=== PATIENT | male | born 1935 | race Caucasian/White ===

== ENCOUNTER 2016-07-01 23:55 | Inpatient (IN) | payer OTHER, MEDICARE ==
[2016-07-02 01:14] LABS: % IMMATURE GRANULYOCYTES 0.5 % (0.0-1.1); ABSOLUTE IMMATURE GRANULOCYTES 0.05 10^3/uL (0.00-0.10); ADD DIFF? NO; ADD MORPH? NO; ADD SCAN? NO; ATYPICAL LYMPHOCYTE FLAG 0 (0-99); FRAGMENT RBC FLAG 0 (0-99); HEMATOCRIT 42.3 % (40.0-51.0); HEMOGLOBIN 15.1 g/dL (13.7-17.5); LEFT SHIFT FLG 0 (0-99); LIPEMIA HEMOLYSIS FLAG 90 (0-99); MEAN CELL HEMOGLOBIN 34.8 pg (27.9-34.1); MEAN CELL HEMOGLOBIN CONCENTR. 35.7 g/dL (32.4-36.7); MEAN CELL VOLUME 97.5 fL (81.5-99.8); PLATELET CLUMPS FLAG 10 (0-99); PLATELET COUNT 113 10^3/uL (150-400); RED BLOOD CELL COUNT 4.34 10^6/uL (4.40-6.38); RED CELL DISTRIBUTION WIDTH 11.9 % (11.5-15.2)
[2016-07-02 01:25] LABS: ALANINE AMINOTRANSFERASE 39 IU/L (21-72); ALBUMIN 2.5 g/dL (3.5-5.0); ALKALINE PHOSPHATASE 61 IU/L (38-126); ANION GAP 5 mEq/L (8-16); ASPARTATE AMINOTRANSFERASE 38 IU/L (17-59); BILIRUBIN,TOTAL 0.6 mg/dL (0.1-1.4); CALCIUM 8.4 mg/dL (8.5-10.4); CARBON DIOXIDE 24 mEq/l (22-31); CHLORIDE 104 mEq/L (97-110); CREATININE 0.7 mg/dL (0.7-1.3); GLOMERULAR FILTRATION RATE > 60; GLUCOSE 111 mg/dL (70-100); SODIUM 133 mEq/L (134-144); TOTAL PROTEIN 4.6 g/dL (6.3-8.2)
[2016-07-02] MEDS ORDERED: NS 1,000 ML IV ONE (01:37)
[2016-07-02] MEDS ORDERED: AZITHROMYCIN 250 MG TAB PO ONE (01:38)
[2016-07-02] MEDS ORDERED: OSELTAMIVIR PHOSPHATE 75 MG CAP PO ONE (01:44)
--- NOTE | 2016-07-02 01:50 | EDPHY ---
H & P Stated Complaint: cough, fever x 3-4 days Time Seen by Provider: 07/02/16 00:35 HPI/ROS: HPI The patient presents with several days of cough which is productive sounding though he is not making any phlegm, also mild rhinorrhea. The cough has been constant and moderate in severity. Tonight it was associated with a fever to 102.7 and that is what prompted him to come to the emergency room. He says in general he is feeling lethargic and somewhat unsteady when he walks. He says he also has muscle aches. He just returned from a trip to [place]. His symptoms began while he was in [place]. He did receive a flu shot this year. 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 REVIEW OF SYSTEMS Constitutional: No fever, no chills. Eyes: No discharge. ENT: + sore throat. Cardiovascular: No chest pain, no palpitations. Respiratory: + cough, no shortness of breath. Gastrointestinal: No abdominal pain, no vomiting. Genitourinary: No hematuria. Musculoskeletal: No back pain. Skin: No rashes. Neurological: No headache. PMHx: Amyloidosis, history of DVT on Eliquis Soc Hx: Recent visit to [place] PHYSICAL General Appearance: Alert, no distress Eyes: Pupils equal and round no pallor or injection ENT, Mouth: Mucous membranes moist Respiratory: There are no retractions, lungs are clear to auscultation with faint crackles at the bases Cardiovascular: Regular rate and rhythm Gastrointestinal: Abdomen is soft and non-tender, no masses, bowel sounds normal Neurological: A&O, moves all extremities Skin: Warm and dry, no rashes Musculoskeletal: Neck is supple non tender Extremities: symmetrical, full range of motion Psychiatric: Patient is oriented X 3, there is no agitation Source: Patient Exam Limitations: No limitations - Personal History Current Tetanus/Diphtheria Vaccine: No Current Tetanus Diphtheria and Acellular Pertussis (TDAP): No Tetanus Vaccine Date: 2004 - Medical/Surgical History Hx Asthma: No Hx Chronic Respiratory Disease: No Hx Diabetes: No Hx Cardiac Disease: No Hx Renal Disease: No Hx Cirrhosis: No Hx Alcoholism: No Hx HIV/AIDS: No Hx Splenectomy or Spleen Trauma: No Other PMH: prostate CA, bilat inguinal hernia repair, amyloidosis in remission/ dvt - Social History Smoking Status: Never smoked Constitutional: Initial Vital Signs Temperature (C) 37.3 C 07/02/16 00:03 Heart Rate 99 07/02/16 00:03 Respiratory Rate 16 07/02/16 00:03 Blood Pressure 116/64 07/02/16 00:03 O2 Sat (%) 90 L 07/02/16 00:03 O2 Delivery Mode Room Air O2 (L/minute) 2 Allergies/Adverse Reactions: No Known Allergies Allergy (Verified 07/02/16 00:01) Home Medications: Medication Instructions Recorded Losartan Potassium [Cozaar 25 mg 11/17/13 (*)] Valacyclovir HCl [Valtrex] 11/17/13 Dexamethasone 07/02/16 Minlaro 07/02/16 Xarelto 07/02/16 Medical Decision Making - Diagnostics Imaging: Chest x-ray two views shows scarring verses fluid in the left lung fissure, interpreted by me, radiology interpretation is pending. ED Course/Re-evaluation: In the emergency room, basic labs were obtained and were unremarkable except for positive rapid flu testing. Chest x-ray shows possible mild pneumonia. He was given Tamiflu, ceftriaxone, azithromycin as well as a fluid bolus. He will be admitted to the hospitalist service and I have consulted with Dr. Brooks. Differential Diagnosis: This is a 80-year-old man with amyloidosis on chemotherapy, last treatment 1 week ago, also history of DVT on Eliquis who presents with fever tonight to 102.7 associated with cough, generalized malaise and unsteadiness on his feet. Differential diagnosis includes influenza, pneumonia, viral URI, less likely ACS given no chest pain. Less likely PE given he is currently anticoagulated on Eliquis in his symptoms preceded his flight from [place], however this is a consideration. - Data Points Laboratory Results: Laboratory Results 07/02/16 01:03 07/02/16 01:03 07/02/16 07/02/16 01:24 01:03 WBC 9.39 10^3/uL (3.80-9.50) RBC 4.34 L 10^6/uL (4.40-6.38) Hgb 15.1 g/dL (13.7-17.5) Hct 42.3 % (40.0-51.0) MCV 97.5 fL (81.5-99.8) MCH 34.8 H pg (27.9-34.1) MCHC 35.7 g/dL (32.4-36.7) RDW 11.9 % (11.5-15.2) Plt Count 113 L 10^3/uL (150-400) MPV 11.0 fL (8.7-11.7) Neut % (Auto) 83.5 H % (39.3-74.2) Lymph % (Auto) 4.0 L % (15.0-45.0) [place] % (Auto) 11.8 % (4.5-13.0) Eos % (Auto) 0.0 L % (0.6-7.6) Baso % (Auto) 0.2 L % (0.3-1.7) Nucleat RBC Rel Count 0.0 % (0.0-0.2) Absolute Neuts (auto) 7.83 H 10^3/uL (1.70-6.50) Absolute Lymphs (auto) 0.38 L 10^3/uL (1.00-3.00) Absolute Monos (auto) 1.11 H 10^3/uL (0.30-0.80) Absolute Eos (auto) 0.00 L 10^3/uL (0.03-0.40) Absolute Basos (auto) 0.02 10^3/uL (0.02-0.10) Absolute Nucleated RBC 0.00 10^3/uL (0-0.01) Immature Gran % 0.5 % (0.0-1.1) Immature Gran # 0.05 10^3/uL (0.00-0.10) Sodium 133 L mEq/L (134-144) Potassium 4.0 mEq/L (3.5-5.2) Chloride 104 mEq/L (97-110) Carbon Dioxide 24 mEq/l (22-31) Anion Gap 5 L mEq/L (8-16) BUN 18 mg/dL (7-23) Creatinine 0.7 mg/dL (0.7-1.3) Estimated GFR > 60 Glucose 111 H mg/dL (70-100) Calcium 8.4 L mg/dL (8.5-10.4) Total Bilirubin 0.6 mg/dL (0.1-1.4) AST 38 IU/L (17-59) ALT 39 IU/L (21-72) Alkaline Phosphatase 61 IU/L (38-126) Total Protein 4.6 L g/dL (6.3-8.2) Albumin 2.5 L g/dL (3.5-5.0) Influenza Typ A,B (DFA) POSITIVE FOR FLU A H (NEGATIVE) Departure - Departure Disposition: [facility] Inpatient Acute Clinical Impression: Influenza A, Hypoxia Pneumonia Qualifiers: Pneumonia type: due to unspecified organism Laterality: left Lung location: unspecified part of lung Qualifier Code: (J18.9) Pneumonia, unspecified organism Amyloidosis Qualifiers: Amyloidosis type: unspecified amyloidosis Qualifier Code: (E85.9) Amyloidosis, unspecified Condition: Fair
[2016-07-02] MEDS ORDERED: oxyCODONE IR 5 MG TAB PO PRN (02:44)
[2016-07-02] MEDS ORDERED: ACETAMINOPHEN 500 MG TAB PO PRN (02:44)
[2016-07-02] MEDS ORDERED: ONDANSETRON 4 MG/2 ML VIAL IVP PRN (02:44)
[2016-07-02] MEDS ORDERED: ALBUTEROL 3 ML DEYVIAL IH PRN (02:44)
[2016-07-02] MEDS ORDERED: ONDANSETRON DISINTEGRATING 4 MG TAB PO PRN (02:44)
[2016-07-02] MEDS ORDERED: BENZONATATE 100 MG CAP PO PRN (02:48)
--- NOTE | 2016-07-02 03:01 | PDGENHP ---
History and Physical - Chief Complaint fever, cough - History of Present Illness Patient is a 80-year-old male with a history of amyloidosis currently on chemotherapy, history of DVT on Xarelto who presents to the ED with complaint of cough and fever. Patient states symptoms started about 3 or 4 days ago, initially with generalized malaise and fatigue. this progressed to include cough productive sputum, associated with shortness of breath with exertion and subjective fever and chills. Patient denies any chest pain, nausea, vomiting, abdominal pain or diarrhea. Patient was recently on a business trip to [facility] for the past 3 days, cut his trip short due to his symptoms and flew back to [place] this evening. Was driven home by a friend because he reported feeling lethargic and confused upon arrival in the airport. arrival home patient's noted him to be confused, having difficulty walking due to generalized weakness and also febrile, so they came to the emergency room for further evaluation. On arrival to the ED, patient was afebrile, hemodynamically stable although slightly hypoxic on room air. Labs revealed normal CBC and BMP, however rapid flu swab was positive for influenza A. Chest x-ray revealed possible left lower lobe infiltrate. patient was initiated on Tamiflu and given community- acquired pneumonia coverage and admitted to the hospital service for further management. History Information - Allergies/Home Medication List Allergies/Adverse Reactions: No Known Allergies Allergy (Verified 07/02/16 00:01) Home Medications: Losartan Potassium [Cozaar 25 mg (*)] 11/17/13 [Last Taken Unknown] Valacyclovir HCl [Valtrex] 11/17/13 [Last Taken Unknown] Dexamethasone 07/02/16 [Last Taken Unknown] Minlaro 07/02/16 [Last Taken Unknown] Xarelto 07/02/16 [Last Taken Unknown] I have personally reviewed and updated: family history, medical history, social history, surgical history - Past Medical History Additional medical history: Amylodosis on chemotherapy. h/o prostate ca. h/o DVT x 2, most recently 02/2016, on Xarelto - Surgical History Additional surgical history: hernia repair - Family History Additional family history: M: at 42 2/2 pancreatitic ca. 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 Review of Systems ROS: 10pt was reviewed & negative except for what was stated in HPI & below Physical Exam Temp Pulse Resp BP Pulse Ox 37.3 C 99 16 116/64 90 L 07/02/16 00:03 07/02/16 00:03 07/02/16 00:03 07/02/16 00:03 07/02/16 00:03 Constitutional: no apparent distress, appears nourished, not in pain Eyes: PERRL, anicteric sclera, EOMI Ears, Nose, Mouth, Throat: moist mucous membranes, hearing normal, ears appear normal, no oral mucosal ulcers Cardiovascular: regular rate and rhythym, no murmur, rub, or gallop, pulses symmetric bilaterally, No JVD, No edema Peripheral Pulses: 2+: dorsalis-pedis (R), dorsalis-pedis (L) Respiratory: no respiratory distress, no rales or rhonchi, bronchial breath sounds (L lower lung field) Gastrointestinal: normoactive bowel sounds, soft, non-tender abdomen, no palpable masses, No guarding, No rebound Genitourinary: no bladder fullness, no bladder tenderness Skin: warm, normal color, no rashes or abrasions, no fluctuance, no induration, No mottled Musculoskeletal: full muscle strength, no muscle tenderness, normal joint ROM, no joint effusions Neurologic: AAOx3, sensation intact bilaterally, CN II-XII Intact, No weakness, No numbness Psychiatric: interacting appropriately, not anxious, not encephalopathic, thought process linear Lab Data & Imaging Review 07/02/16 01:03 07/02/16 01:03 WBC 9.39 10^3/uL (3.80-9.50) 07/02/16 01:03 RBC 4.34 10^6/uL (4.40-6.38) L 07/02/16 01:03 Hgb 15.1 g/dL (13.7-17.5) 07/02/16 01:03 Hct 42.3 % (40.0-51.0) 07/02/16 01:03 MCV 97.5 fL (81.5-99.8) 07/02/16 01:03 MCH 34.8 pg (27.9-34.1) H 07/02/16 01:03 MCHC 35.7 g/dL (32.4-36.7) 07/02/16 01:03 RDW 11.9 % (11.5-15.2) 07/02/16 01:03 Plt Count 113 10^3/uL (150-400) L 07/02/16 01:03 MPV 11.0 fL (8.7-11.7) 07/02/16 01:03 Neut % (Auto) 83.5 % (39.3-74.2) H 07/02/16 01:03 Lymph % (Auto) 4.0 % (15.0-45.0) L 07/02/16 01:03 [place] % (Auto) 11.8 % (4.5-13.0) 07/02/16 01:03 Eos % (Auto) 0.0 % (0.6-7.6) L 07/02/16 01:03 Baso % (Auto) 0.2 % (0.3-1.7) L 07/02/16 01:03 Nucleat RBC Rel Count 0.0 % (0.0-0.2) 07/02/16 01:03 Absolute Neuts (auto) 7.83 10^3/uL (1.70-6.50) H 07/02/16 01:03 Absolute Lymphs (auto) 0.38 10^3/uL (1.00-3.00) L 07/02/16 01:03 Absolute Monos (auto) 1.11 10^3/uL (0.30-0.80) H 07/02/16 01:03 Absolute Eos (auto) 0.00 10^3/uL (0.03-0.40) L 07/02/16 01:03 Absolute Basos (auto) 0.02 10^3/uL (0.02-0.10) 07/02/16 01:03 Absolute Nucleated RBC 0.00 10^3/uL (0-0.01) 07/02/16 01:03 Immature Gran % 0.5 % (0.0-1.1) 07/02/16 01:03 Immature Gran # 0.05 10^3/uL (0.00-0.10) 07/02/16 01:03 Sodium 133 mEq/L (134-144) L 07/02/16 01:03 Potassium 4.0 mEq/L (3.5-5.2) 07/02/16 01:03 Chloride 104 mEq/L (97-110) 07/02/16 01:03 Carbon Dioxide 24 mEq/l (22-31) 07/02/16 01:03 Anion Gap 5 mEq/L (8-16) L 07/02/16 01:03 BUN 18 mg/dL (7-23) 07/02/16 01:03 Creatinine 0.7 mg/dL (0.7-1.3) 07/02/16 01:03 Estimated GFR > 60 07/02/16 01:03 Glucose 111 mg/dL (70-100) H 07/02/16 01:03 Calcium 8.4 mg/dL (8.5-10.4) L 07/02/16 01:03 Total Bilirubin 0.6 mg/dL (0.1-1.4) 07/02/16 01:03 AST 38 IU/L (17-59) 07/02/16 01:03 ALT 39 IU/L (21-72) 07/02/16 01:03 Alkaline Phosphatase 61 IU/L (38-126) 07/02/16 01:03 Total Protein 4.6 g/dL (6.3-8.2) L 07/02/16 01:03 Albumin 2.5 g/dL (3.5-5.0) L 07/02/16 01:03 Influenza Typ A,B (DFA) POSITIVE FOR FLU A (NEGATIVE) H 07/02/16 01:24 Visualized and Interpreted Chest x-ray results: Yes Chest X-Ray results: other (? retrocardiac opacity in LLL) Assessment & Plan Assessment: patient is a 80-year-old male with a history of amyloidosis, on chemotherapy, who presents to the ED with complaint of 3 days of generalized malaise, cough and fevers, was found to be influenza A positive possible superimposed bacterial pneumonia. Plan: # acute respiratory failure Likely related to acute Influenza A infection, with possible superimposed community acquired pneumonia also present. Given recent travel, PE is also on the differential, however, pt is fully anticoagulated given recent DVT, has no tachycardia, tachypnea, so PE is unlikely. Will cont supplemental O2 via nc prn and given albuterol neb prn. # acute influenza A infection Symptoms consistent with influenza infection, and cannot r/o bacterial pneumonia also. Given pt's immunocompromised state, will treat for both with tamiflu, ceftriaxone and azithromycin and provide symptomatic relief prn. # amyloidosis, hypoalbuminemia Patient was due to receive his scheduled chemo dosing today, however, given acute infection, will likely hold this. Will need to contact pt's oncologist, Dr. Rodriguez, to inform him of pt's admission. # h/o recent DVT No signs/symptoms of acute DVT. Will continue Xarelto. # dispo: admit to inpt service for likely > 2 MN stay given acute respiratory failure, acute influenza infection in setting of immunocompromised state # gen: regular diet DVT ppx: on xarelto Full code
[2016-07-02] MEDS: NS 1,000 ML IV SCH (03:47)
[2016-07-02 05:32] LABS: % IMMATURE GRANULYOCYTES 0.4 % (0.0-1.1); ABSOLUTE IMMATURE GRANULOCYTES 0.03 10^3/uL (0.00-0.10); ADD DIFF? NO; ADD MORPH? NO; ADD SCAN? NO; ATYPICAL LYMPHOCYTE FLAG 0 (0-99); FRAGMENT RBC FLAG 0 (0-99); HEMATOCRIT 40.6 % (40.0-51.0); HEMOGLOBIN 14.2 g/dL (13.7-17.5); LEFT SHIFT FLG 0 (0-99); LIPEMIA HEMOLYSIS FLAG 90 (0-99); MEAN CELL HEMOGLOBIN 35.2 pg (27.9-34.1); MEAN CELL VOLUME 100.7 fL (81.5-99.8); MEAN PLATELET VOLUME 11.5 fL (8.7-11.7); PLATELET CLUMPS FLAG 10 (0-99); PLATELET COUNT 100 10^3/uL (150-400); RED BLOOD CELL COUNT 4.03 10^6/uL (4.40-6.38); RED CELL DISTRIBUTION WIDTH 12.1 % (11.5-15.2)
[2016-07-02 05:41] LABS: COLOR YELLOW; LEUKOCYTE ESTERASE,URINE NEGATIVE (NEGATIVE); NITRITE,URINE NEGATIVE (NEGATIVE)
[2016-07-02 05:46] LABS: ANION GAP 3 mEq/L (8-16); CALCIUM 7.8 mg/dL (8.5-10.4); CARBON DIOXIDE 24 mEq/l (22-31); CHLORIDE 107 mEq/L (97-110); CREATININE 0.7 mg/dL (0.7-1.3); GLOMERULAR FILTRATION RATE > 60; GLUCOSE 129 mg/dL (70-100); POTASSIUM 3.9 mEq/L (3.5-5.2); SODIUM 134 mEq/L (134-144)
[2016-07-02 05:56] LABS: MUCUS 1+ /lpf (NONE-1+)
--- NOTE | 2016-07-02 08:57 | HOSPPROG ---
Hospitalist Progress Note Assessment/Plan: patient is a 80-year-old male with history of amyloidosis currently on chemotherapy. Presented to the emergency room with cough and fever. Today is my 1st encounter with the patient. Chart reviewed. #. Influeza A * tamiflu * on 1.5 liters of O2 #. Acute resp fx * due to influenza and left lower lobe infiltrate #. left lower lobe pneumonia * on azithromycin and ceftriaxone #. thrombocytopenia * will follow #. Hx of DVT * Xarelto #. Amyloidosis/ on chemo * spoke with Dr Guzmán * ok to continue his regular treatment #. plan. * Continue the above treatment. Patient will likely require greater than a 2 midnight stay due to the flu and superimposed pneumonia. Subjective: Donnie is not feeling much better today. Objective: Vital Signs Temp Pulse Resp BP Pulse Ox 37.4 C 75 16 143/83 H 95 07/02/16 07:27 07/02/16 07:27 07/02/16 07:27 07/02/16 07:27 07/02/16 07:27 Laboratory Results 07/02/16 04:59 07/02/16 04:59 07/01/16 07/02/16 07/03/16 05:59 05:59 05:59 Intake Total 1150 149 Output Total 250 Balance 900 149 - Physical Exam Constitutional: no apparent distress, not in pain Eyes: PERRL Ears, Nose, Mouth, Throat: hearing normal Cardiovascular: regular rate and rhythym Respiratory: rhonchi ( Scattered in the left lower lobe area) Gastrointestinal: normoactive bowel sounds Skin: warm, normal color Neurologic: AAOx3 Psychiatric: interacting appropriately, not anxious ICD10 Worksheet Patient Problems: Problems Problem Status Diagnosed Amyloidosis Acute Hypoxia Acute Influenza A Acute Pneumonia Acute
[2016-07-02] MEDS ORDERED: RIVAROXABAN 20 MG TAB PO SCH (09:00)
[2016-07-02] MEDS ORDERED: AZITHROMYCIN IV 500 MG in D5W 250 ML IV SCH (09:00)
[2016-07-02] MEDS ORDERED: NON-FORMULARY NEW DRUG (Losartan Potassium [Losartan Potassium] 100 MG) PO SCH (09:00)
--- NOTE | 2016-07-02 09:55 | DX ---
Chest, Two Views July 02, 2016, at 0022 Hours History: Cough and fever. Comparison: None. Findings: Cardiac silhouette is within normal range. Left lower lobe opacity consistent with pneumoni a. Right lung is clear. Tortuous thoracic aorta. No pleural effusion or pneumothorax. Impression: Left lower lobe pneumonia.
[2016-07-02] MEDS: LOSARTAN POTASSIUM 50 MG TAB PO SCH (10:29)
[2016-07-02] MEDS: valACYclovir 500 MG TAB PO SCH (10:30)
[2016-07-02] MEDS ORDERED: Ixazomib Citrate [Ninlaro] 4 MG PO SCH (18:00)
[2016-07-02] MEDS ORDERED: DEXAMETHASONE 4 MG TAB PO SCH (18:00)
[2016-07-02] MEDS: OSELTAMIVIR PHOSPHATE 75 MG CAP PO SCH (18:11)
[2016-07-02 22:56] LABS: % IMMATURE GRANULYOCYTES 0.5 % (0.0-1.1); ABSOLUTE IMMATURE GRANULOCYTES 0.03 10^3/uL (0.00-0.10); ADD DIFF? NO; ADD MORPH? NO; ADD SCAN? NO; ATYPICAL LYMPHOCYTE FLAG 20 (0-99); FRAGMENT RBC FLAG 0 (0-99); HEMATOCRIT 38.7 % (40.0-51.0); HEMOGLOBIN 13.5 g/dL (13.7-17.5); LEFT SHIFT FLG 0 (0-99); LIPEMIA HEMOLYSIS FLAG 90 (0-99); MEAN CELL HEMOGLOBIN CONCENTR. 34.9 g/dL (32.4-36.7); MEAN CELL VOLUME 100.3 fL (81.5-99.8); MEAN PLATELET VOLUME 10.7 fL (8.7-11.7); PLATELET CLUMPS FLAG 0 (0-99); PLATELET COUNT 89 10^3/uL (150-400); RED BLOOD CELL COUNT 3.86 10^6/uL (4.40-6.38); RED CELL DISTRIBUTION WIDTH 12.3 % (11.5-15.2)
[2016-07-02 23:05] LABS: APTT 40.5 SEC (23.0-38.0); INR 1.63 (0.83-1.16); PROTIME(PATIENT) 19.4 SEC (12.0-15.0)
[2016-07-03] MEDS: NS 1,000 ML IV SCH (05:56)
[2016-07-03] MEDS ORDERED: AZITHROMYCIN 250 MG TAB PO SCH (09:00)
[2016-07-03] MEDS: OSELTAMIVIR PHOSPHATE 75 MG CAP PO SCH ×2 (09:04→18:41)
[2016-07-03] MEDS: LOSARTAN POTASSIUM 50 MG TAB PO SCH (09:05)
[2016-07-03] MEDS: valACYclovir 500 MG TAB PO SCH (09:09)
--- NOTE | 2016-07-03 15:44 | HOSPPROG ---
Hospitalist Progress Note Assessment/Plan: patient is a 80-year-old male with history of amyloidosis currently on chemotherapy. Presented to the emergency room with cough and fever. #. Influeza A * tamiflu * did a room air challenge and he did well #. Acute resp fx * due to influenza and left lower lobe infiltrate #. left lower lobe pneumonia * on azithromycin and ceftriaxone * change to levaquin in a.m. #. thrombocytopenia * lower today #. Bout of bloody diarrhea this morning * patient said this has occurred before #. Hx of DVT * Xarelto (finished 3 month treatment) #. Amyloidosis/ on chemo #. plan. * he will need another midnight stay / will ask nursing staff to notify me if he has any further diarrhea Subjective: Donnie is starting to feel better today. Objective: Vital Signs Temp Pulse Resp BP Pulse Ox 36.7 C 69 16 135/82 H 91 L 07/03/16 11:51 07/03/16 11:51 07/03/16 11:51 07/03/16 11:51 07/03/16 11:51 Laboratory Results 07/02/16 22:45 07/02/16 04:59 07/02/16 07/03/16 07/04/16 05:59 05:59 05:59 Intake Total 1150 2594 600 Output Total 250 750 600 Balance 900 1844 0 PT 19.4 SEC (12.0-15.0) H 07/02/16 22:45 INR 1.63 (0.83-1.16) H 07/02/16 22:45 - Physical Exam Constitutional: no apparent distress Eyes: PERRL Ears, Nose, Mouth, Throat: hearing normal Cardiovascular: regular rate and rhythym Respiratory: no respiratory distress, rhonchi (left base) Gastrointestinal: normoactive bowel sounds Skin: warm Musculoskeletal: full muscle strength Neurologic: AAOx3 Psychiatric: interacting appropriately, not anxious ICD10 Worksheet Patient Problems: Problems Problem Status Diagnosed Amyloidosis Acute Hypoxia Acute Influenza A Acute Pneumonia Acute
[2016-07-03 19:35] VITALS: RESP 16
[2016-07-04 04:17] VITALS: BP 163/89
[2016-07-04 07:47] VITALS: PULSE 66; TEMP 97.4; O2SAT 93
--- NOTE | 2016-07-04 09:22 | HOSPPROG ---
Hospitalist Progress Note Assessment/Plan: patient is a 80-year-old male with history of amyloidosis currently on chemotherapy. Presented to the emergency room with cough and fever. #. Influeza A * tamiflu * did a room air challenge and he did well #. Acute resp fx * resolved #. left lower lobe pneumonia * on azithromycin and ceftriaxone * dc on levaquin . #. thrombocytopenia * f/u w Dr Guzmán #. Bout of bloody diarrhea * none further #. Hx of DVT * Xarelto (finished 3 month treatment) #. Amyloidosis/ on chemo #. plan. * dc home Subjective: Giorgi is feeling much better today. Objective: Vital Signs Temp Pulse Resp BP Pulse Ox 36.3 C 66 16 163/89 H 93 07/04/16 07:41 07/04/16 07:41 07/04/16 07:41 07/04/16 04:00 07/04/16 07:41 Laboratory Results 07/02/16 22:45 07/02/16 04:59 07/03/16 07/04/16 07/05/16 05:59 05:59 05:59 Intake Total 2594 1100 Output Total 750 1450 Balance 1844 -350 PT 19.4 SEC (12.0-15.0) H 07/02/16 22:45 INR 1.63 (0.83-1.16) H 07/02/16 22:45 - Physical Exam Constitutional: no apparent distress, appears nourished, not in pain Eyes: PERRL Ears, Nose, Mouth, Throat: hearing normal Cardiovascular: regular rate and rhythym Respiratory: no respiratory distress Gastrointestinal: normoactive bowel sounds Skin: warm, normal color Musculoskeletal: full muscle strength Neurologic: AAOx3 Psychiatric: interacting appropriately, not anxious ICD10 Worksheet Patient Problems: Problems Problem Status Diagnosed Amyloidosis Acute Hypoxia Acute Influenza A Acute Pneumonia Acute
[2016-07-04] MEDS: OSELTAMIVIR PHOSPHATE 75 MG CAP PO SCH (09:46)
[2016-07-04] MEDS: LOSARTAN POTASSIUM 50 MG TAB PO SCH (09:48)
[2016-07-04] MEDS: valACYclovir 500 MG TAB PO SCH (09:49)
--- NOTE | 2016-07-04 10:26 | GDS ---
[f rep st] DISCHARGE SUMMARY DISCHARGE DIAGNOSES: 1. Influenza A. 2. Acute hypoxemic respiratory failure. 3. Left lower lobe pneumonia. 4. Thrombocytopenia. 5. Bout of bloody diarrhea. 6. History of deep vein thrombosis. 7. Amyloidosis. BRIEF HISTORY: The patient is a 80-year-old male with a history of amyloidosis , on chemotherapy, history of DVT, who presented to the emergency room with complaint of cough and fever. In the ER, he was afebrile, but was hypoxic on room air. He had a rapid flu swab, which was positive for influenza. He was treated for the influenza with Tamiflu. He will be discharged home on this medication and further followup with his primary care provider, as well as, Dr. Guzmán. HOSPITAL COURSE BY PROBLEM: 1. Influenza A. He is on room air. He is feeling well. Will continue Tamiflu. 2. Acute hypoxemic respiratory failure, resolved. 3. Left lower lobe pneumonia. He was treated with azithromycin and ceftriaxone. Will treat him on Levaquin at discharge. 4. Thrombocytopenia. Follow up with Dr. Guzmán. 5. Bout of bloody diarrhea, none further. 6. History of DVT. He finished his treatment with Xarelto. 7. Amyloidosis. He received chemotherapy during his stay. PENDING LABS AND TESTS: None. CONDITION AT DISCHARGE: Stable. VITAL SIGNS: Blood pressure is 163/89, heart rate 70, respiratory rate 16, O2 saturation on room air 95%, temperature is 36.4 Celsius. MEDICATIONS AT DISCHARGE: Please see the EMR. DISCHARGE INSTRUCTIONS: 1. Get a repeat chest x-ray in 6 weeks to make sure there is resolution of pneumonia. 2. Follow up with Dr. Guzmán in regard to his low platelet count. 3. If he develops fever, chills, chest pain, shortness of breath he is to return to the emergency room. Greater than 30 minutes discharging and coordinating care. /[id number]/MODL MTDD
[2016-07-08] MEDS ORDERED: IXAZOMIB CITRATE 4 MG PO SCH (08:57)
[2016-07-08] MEDS ORDERED: DEXAMETHASONE 4 MG TAB PO SCH (08:57)
[2016-07-08] MEDS ORDERED: Ixazomib Citrate [Ninlaro] 4 MG PO SCH (09:13)
== END 2016-07-04 10:50 | disposition home or self-care (01) | DRG 193 ==
LOC: OBSVTOIN 07-02 02:44 → F3E 07-02 03:17
PROVIDERS: ADMIT Internal Medicine; ATTEND Internal Medicine
DX: J10.00 Influenza due to other identified influenza virus with unspecified type of pneumonia (principal); J96.01 Acute respiratory failure with hypoxia; D69.6 Thrombocytopenia, unspecified; R19.7 Diarrhea, unspecified; K92.1 Melena; E85.9 Amyloidosis, unspecified; Z86.718 Personal history of other venous thrombosis and embolism; Z79.01 Long term (current) use of anticoagulants
CPT/HCPCS: J0456; J0696

== ENCOUNTER → 2016-08-03 | Outpatient (CLI) | payer OTHER, MEDICARE | LOC: FIMAGING 10:17 | PROVIDERS: ATTEND Internal Medicine Hematology & Oncology | DX: Z09 Encounter for follow-up examination after completed treatment for conditions other than malignant neoplasm (principal); R91.8 Other nonspecific abnormal finding of lung field; Z85.46 Personal history of malignant neoplasm of prostate ==

== ENCOUNTER → 2018-07-07 | Outpatient (CLI) | payer OTHER, MEDICARE | LOC: FIMAGING 14:46 | PROVIDERS: ATTEND Internal Medicine Hematology & Oncology | DX: R91.8 Other nonspecific abnormal finding of lung field (principal); R05 Cough ==